=== PATIENT | female | born 1980 | race Caucasian/White ===

== ENCOUNTER 2018-08-08 10:48 | Outpatient (CLI) | payer OTHER, SELFPAY ==
[2018-08-08 12:30] LABS: FREE T4 1.24 ng/dL (0.76-1.46); TSH 0.07 uIU/mL (0.358-3.74)
[2018-08-08 18:11] LABS: T3,Free 4.7 pg/ml (2.8-5.3)
== END 2018-08-08 11:08 ==
PROVIDERS: PCP Nurse Practitioner Adult Health; Visit Provider Internal Medicine Endocrinology, Diabetes & Metabolism
DX: E03.9 Hypothyroidism, unspecified (principal)
CPT/HCPCS: 36415; 84439; 84443; 84481

== ENCOUNTER 2019-03-26 10:17 | Outpatient (CLI) | payer SELFPAY ==
[2019-03-26 11:34] LABS: TSH 0.05 uIU/mL (0.36-3.74)
== END 2019-03-26 10:37 ==
PROVIDERS: PCP Nurse Practitioner Adult Health; Visit Provider Internal Medicine Endocrinology, Diabetes & Metabolism
DX: E03.9 Hypothyroidism, unspecified (principal)
CPT/HCPCS: 36415; 84439; 84443; 84481

== ENCOUNTER 2019-10-02 11:26 | Outpatient (REF) | payer SELFPAY ==
[2019-10-02 13:16] LABS: T4 11.2 ug/mL (4.7-13.3); TSH 0.42 uIU/mL (0.36-3.74)
[2019-10-02 21:44] LABS: T3,Free 3.5 pg/mL (2.8-5.3)
[2019-10-02 21:58] LABS: T3, Total 211 ng/dL (97-169)
== END 2019-10-02 11:46 ==
LOC: LBN 11:26
PROVIDERS: Internal Medicine Endocrinology, Diabetes & Metabolism; PCP Nurse Practitioner Adult Health; Visit Provider Nurse Practitioner Adult Health
DX: E03.9 Hypothyroidism, unspecified (principal)
CPT/HCPCS: 84436; 84443; 84480; 84481

== ENCOUNTER 2019-12-24 16:38 | Outpatient (REF) | payer OTHER, SELFPAY ==
[2019-12-26 09:23] LABS: Patient Race White; SARS-CoV-2 RNA Undetected (Undetected); SARS-CoV-2 Specimen Source Nasal
== END 2019-12-24 16:58 ==
LOC: NCHCN 16:38
PROVIDERS: PCP Nurse Practitioner Adult Health; Visit Provider Nurse Practitioner Family
DX: Z20.828 Contact with and (suspected) exposure to other viral communicable diseases (principal)
CPT/HCPCS: U0003

== ENCOUNTER 2020-02-08 02:25 | Outpatient (REF) | payer SELFPAY ==
[2020-02-13 16:20] LABS: Varicella IgG Antibody Positive
[2020-02-14 12:59] LABS: Hepatitis B Surface Ab Positive (See Note)
[2020-02-14 13:00] LABS: HBs Antibody, Quant >1000.0 mIU/mL (See Note)
[2020-02-14 15:59] LABS: TB Interpretation Negative; TB1 Ag minus Nil 0.03 IU/mL; TB2 Ag minus Nil 0.03 IU/mL
== END 2020-02-08 02:45 ==
LOC: LBO 02:25
PROVIDERS: PCP Nurse Practitioner Adult Health; Visit Provider Nurse Practitioner Family
DX: Z02.1 Encounter for pre-employment examination (principal)
CPT/HCPCS: 36415; 86706; 86787; 86480

== ENCOUNTER 2020-04-23 04:46 | Outpatient (CLI) | payer OTHER, SELFPAY ==
[2020-04-23 18:18] LABS: T4 9.8 ug/mL (4.7-13.3)
[2020-04-24 16:48] LABS: T3,Free 3.1 pg/mL (2.8-5.3)
[2020-04-24 17:06] LABS: T3, Total 207 ng/dL (97-169)
== END 2020-04-23 05:06 ==
PROVIDERS: PCP Nurse Practitioner Adult Health; Visit Provider Internal Medicine Endocrinology, Diabetes & Metabolism
DX: E03.9 Hypothyroidism, unspecified (principal)
CPT/HCPCS: 36415; 84436; 84443; 84480; 84481

== ENCOUNTER 2020-05-12 04:25 | Outpatient (CLI) | payer OTHER, SELFPAY ==
[2020-05-12 08:57] LABS: HCT 40.8 % (36.0-46.0); HGB 13.9 g/dL (11.2-15.7); MCH 31.2 pg (27.0-33.0); MCHC 34.1 % (32.0-36.0); MCV 91.5 fL (80-95); MPV 9.8 fL (8.0-11.0); Platelet Count 281 10^3/uL (130-400); RBC 4.46 10^6/uL (3.93-5.22); RDW 12.6 % (11.7-14.6); RDW-SD 42.1 fL; WBC 11.53 10^3/uL (4.4-10.8)
[2020-05-12 09:25] LABS: ALT 20 U/L (14-59); AST 16 U/L (15-37); Albumin 4.1 g/dL (3.4-5.0); Alkaline Phosphatase 47 U/L (46-116); Anion Gap 5.6 mmol/L (3-11); BUN 16 mg/dL (7-18); Bilirubin, Total 0.4 mg/dL (0.2-1.0); CO2 27.4 mmol/L (21.0-32.0); CREATININE 0.7 mg/dL (0.55-1.02); Calcium 8.8 mg/dL (8.5-10.1); Chloride 107 mmol/L (98-107); Glucose 97 mg/dL (74-106); Potassium 4.3 mmol/L (3.5-5.1); Sodium 140 mmol/L (136-145); Total Protein 7.3 g/dL (6.4-8.2)
[2020-05-12 10:07] LABS: ESR 12 mm/hr (0-20)
== END 2020-05-12 04:45 ==
PROVIDERS: PCP Nurse Practitioner Adult Health; Visit Provider Internal Medicine Endocrinology, Diabetes & Metabolism
DX: R53.83 Other fatigue (principal)
CPT/HCPCS: 36415; 80053; 85027; 85652

== ENCOUNTER 2021-03-06 02:47 | Outpatient (CLI) | payer SELFPAY ==
[2021-03-06 16:42] LABS: TSH 2.48 uIU/mL (0.36-3.74)
[2021-03-06 22:50] LABS: T3, Total 290 ng/dL (97-169)
== END 2021-03-06 02:48 | disposition home or self-care (01) ==
LOC: LBO 02:47
PROVIDERS: PCP Nurse Practitioner Adult Health; Visit Provider Internal Medicine Endocrinology, Diabetes & Metabolism
DX: E03.9 Hypothyroidism, unspecified (principal)
CPT/HCPCS: 36415; 84439; 84443; 84480

== ENCOUNTER 2022-03-03 11:30 | Outpatient (REF) | payer OTHER, SELFPAY ==
[2022-03-03 12:38] LABS: FREE T4 1.18 ng/dL (0.76-1.46); TSH 0.32 uIU/mL (0.36-3.74)
[2022-03-03 19:34] LABS: T3, Total 218 ng/dL (97-169)
== END 2022-03-03 11:31 | disposition home or self-care (01) ==
LOC: LBN 11:30
PROVIDERS: PCP Nurse Practitioner Adult Health; Visit Provider Internal Medicine Endocrinology, Diabetes & Metabolism
DX: E03.9 Hypothyroidism, unspecified (principal)
CPT/HCPCS: 84439; 84443; 84480

== ENCOUNTER 2023-02-24 09:58 | Outpatient (REF) | payer SELFPAY ==
[2023-02-24 11:02] LABS: FREE T4 1.06 ng/dL (0.76-1.46)
[2023-02-24 19:31] LABS: T3, Total 285 ng/dL (97-169)
== END 2023-02-24 09:59 | disposition home or self-care (01) ==
LOC: LBN 09:58
PROVIDERS: PCP Nurse Practitioner Adult Health; Visit Provider Internal Medicine Endocrinology, Diabetes & Metabolism
DX: E03.9 Hypothyroidism, unspecified (principal)
CPT/HCPCS: 84439; 84443; 84480

== ENCOUNTER 2024-04-13 17:21 | Outpatient (REF) | payer SELFPAY ==
[2024-04-13 13:33] LABS: FREE T4 0.96 ng/dL (0.76-1.46); TSH 0.92 uIU/mL (0.36-3.74)
[2024-04-13 22:15] LABS: T3, Total 252 ng/dL (97-169)
== END 2024-04-13 17:22 | disposition home or self-care (01) ==
LOC: LBN 17:21
PROVIDERS: PCP Nurse Practitioner Adult Health; Visit Provider Internal Medicine Endocrinology, Diabetes & Metabolism
DX: E03.9 Hypothyroidism, unspecified (principal); E04.9 Nontoxic goiter, unspecified; R53.83 Other fatigue
CPT/HCPCS: 84439; 84443; 84480

== ENCOUNTER 2024-05-31 15:13 | Outpatient (REF) | payer OTHER, SELFPAY ==
[2024-05-31 10:37] LABS: ALT 25 U/L (14-59); AST 15 U/L (15-37); Albumin 4.4 g/dL (3.4-5.0); Alkaline Phosphatase 55 U/L (46-116); Anion Gap 10.7 mmol/L (3-11); BUN 16 mg/dL (7-18); Bilirubin, Total 0.58 mg/dL (0.2-1.0); CO2 23.3 mmol/L (21.0-32.0); Calcium 9.5 mg/dL (8.5-10.1); Chloride 107 mmol/L (98-107); Glucose 99 mg/dL (74-106); Potassium 4.3 mmol/L (3.5-5.1); Sodium 141 mmol/L (136-145); Total Protein 7.6 g/dL (6.4-8.2)
== END 2024-05-31 15:14 | disposition home or self-care (01) ==
LOC: LBN 15:13
PROVIDERS: PCP Nurse Practitioner Adult Health; Visit Provider Internal Medicine Endocrinology, Diabetes & Metabolism
DX: E03.9 Hypothyroidism, unspecified (principal); E04.9 Nontoxic goiter, unspecified; R53.83 Other fatigue; E66.9 Obesity, unspecified
CPT/HCPCS: 80053

== ENCOUNTER 2025-04-01 14:45 | Outpatient (CLI) | payer OTHER, SELFPAY ==
[2025-04-01 14:58] LABS: TSH 0.04 uIU/mL (0.55-4.78)
[2025-04-01 23:06] LABS: T3, Total 109 ng/dL (82-158)
== END 2025-04-01 14:46 | disposition home or self-care (01) ==
LOC: LBO 14:46
PROVIDERS: PCP Nurse Practitioner Adult Health; Visit Provider Internal Medicine Endocrinology, Diabetes & Metabolism
DX: E03.9 Hypothyroidism, unspecified (principal); E04.9 Nontoxic goiter, unspecified; R53.83 Other fatigue; E66.9 Obesity, unspecified
CPT/HCPCS: 36415; 84439; 84443; 84480